=== PATIENT | female | born 1985 | race Caucasian/White ===

== ENCOUNTER 2024-10-19 08:43 | Outpatient (CLI) | payer OTHER, SELFPAY ==
[2024-10-19 09:52] LABS: Basophils Percent Auto 0.3 % (0.2-1.2); Eosinophils Absolute Auto 0.1 K/mm3 (0-0.3); Eosinophils Percent Auto 1.8 % (0-4.4); Hematocrit 32.5 % (37.0-47.0); Hemoglobin 10.7 g/dL (12.0-15.0); Immature Granulocyte Absolute 0.01 K/mm3 (0.00-0.031); Immature Granulocyte Percent A 0.3 % (0-0.5); Lymphocytes Absolute Auto 1.36 K/mm3 (0.9-3.2); Lymphocytes Percent Auto 41.7 % (18.3-44.2); Mean Corpuscular HGB Conc 32.9 g/dl (32-36); Mean Corpuscular Hemoglobin 27.9 pg (26-34); Mean Corpuscular Volume 84.9 fl (80-100); Mean Platelet Volume 9.8 fl (7.4-10.4); Monocytes Absolute Auto 0.3 K/mm3 (0.1-0.6); Monocytes Percent Auto 10.1 % (2.6-8.5); Neutrophils Absolute Auto 1.5 K/mm3 (1.3-6.7); Neutrophils Percent Auto 45.8 % (45.5-73.1); Platelet Count Result 157 k/mm3 (150-375); Red Blood Count 3.83 M/mm3 (4.2-5.4); Red Cell Distribution Width 15.5 % (11.5-14.5); White Blood Count 3.3 K/mm3 (4.5-10.0)
[2024-10-19 10:06] LABS: Alanine Aminotransferase 21 U/L (6-35); Alkaline Phosphatase 57 U/L (38-126); Anion Gap 6 mmol/L (4-12); Aspartate Amino Transferase 26 U/L (14-36); Bilirubin,Total 0.5 mg/dL (0.2-1.3); Blood Urea Nitrogen 28 mg/dL (7-17); Calcium 9.2 mg/dL (8.4-10.2); Carbon Dioxide 28 mmol/L (22-30); Chloride 103 mmol/L (98-107); Cholesterol 181 mg/dL (0-200); Estimated Glomerular Filt Rate > 60; Glucose 89 mg/dL (65-110); HDL Direct 64 mg/dL; Potassium 4.4 mmol/L (3.4-5.0); Sodium 137 mmol/L (137-145); Triglycerides 105 mg/dL (<150)
[2024-10-19 10:16] LABS: LDL Cholesterol Direct 64 mg/dL
[2024-10-19 11:04] LABS: Hepatitis B Surface Antigen Negative (Negative)
[2024-10-19 11:18] LABS: HIV 1/2 Ab P24 Ag 164
[2024-10-19 11:26] LABS: Hepatitis C Virus Antibody Reactive (Negative)
[2024-10-19 11:59] LABS: Hemoglobin A1C 5.2 % (<5.7)
[2024-10-19 12:17] LABS: HIVc Retest 1 155; HIVc Retest 2 155
[2024-10-19 15:24] LABS: HIV 1/2 Ab P24 Ag Result Reactive (Negative)
[2024-10-20 07:47] LABS: Rapid Plasma Reagin Non-Reactive (NonReactive)
[2024-10-21 13:19] LABS: NIL 0.04 IU/mL; Quantiferon TB Plus, 1T NEGATIVE (NEGATIVE); TB2-NIL 0.01 IU/mL
[2024-10-21 15:54] LABS: Hepatitis C RNA, Quant PCR <15 NOT DETECTED IU/mL (NOT DETECTED)
[2024-10-23 16:44] LABS: HIV 2 Antibody Negative
[2024-10-23 16:45] LABS: HIV 1 Ab Chg Test Yes; HIV 2 Ab Chg Test Yes
[2024-10-23 16:48] LABS: HIV 1 2 Ag Ab 4th Gen w Rflxs Repeatedly Reactive
[2024-10-23 16:51] LABS: HIV 1 Antibody Positive
== END 2024-10-19 08:44 | disposition home or self-care (01) ==
PROVIDERS: Visit Provider Nurse Practitioner Family
DX: Z00.00 Encounter for general adult medical examination without abnormal findings (principal); Z20.9 Contact with and (suspected) exposure to unspecified communicable disease; Z13.1 Encounter for screening for diabetes mellitus; Z13.0 Encounter for screening for diseases of the blood and blood-forming organs and certain disorders involving the immune mechanism; Z13.228 Encounter for screening for other metabolic disorders; Z13.29 Encounter for screening for other suspected endocrine disorder
CPT/HCPCS: 36415; 80053; 80061; 83036; 84443; 85025; 86480; 86592; 86701; 86702; 86703; 86803; 87340; 87389; 87522; G0432

== ENCOUNTER 2024-10-21 09:14 | Outpatient (CLI) | payer OTHER, SELFPAY ==
[2024-10-22 13:23] LABS: HIV 1 RNA PCR 5.73 (NOT DETECTED); HIV 1 RNA PCR 538000 copies/mL (NOT DETECTED)
== END 2024-10-21 09:15 | disposition home or self-care (01) ==
LOC: ANHLAB 09:16
PROVIDERS: Visit Provider Nurse Practitioner Family
DX: Z11.4 Encounter for screening for human immunodeficiency virus [HIV] (principal)
CPT/HCPCS: 36415; 87536; 99212; G0463

== ENCOUNTER 2024-10-22 16:00 | Emergency (ER) | payer OTHER, SELFPAY ==
--- NOTE | ~2024-10-22 | CT_ITS ---
CT chest abdomen pelvis w con Ordering provider: Deandre Mccormick MD History: 39 years Female with . LEFT FLANK PAIN, POSSIBLE LYMPHOMA . Comparison: None. Technique: CT chest with IV contrast. CT abdomen and pelvis CT abdomen and pelvis with IV and with or al contrast. Radiation reduction technique utilized.The dose-length product was 288.88 mGy-cm. 100 mL Omnipaque 350 was given IV.7 FINDINGS: CHEST: --VISUALIZED THORACIC INLET: Normal. Axillary enlarged lymph nodes are noted on the left side measures 2.3 cm. The largest in the right si de which measures 1.5 cm. --MEDIASTINUM: Aorta/coronary arteries: Normal. Heart/other: The heart is not enlarged. Lymph nodes: Right hilar lymph node is seen measuring 1.3 cm. Small lymph nodes are seen in the parat lance and prevascular areas. Soft tissue density seen anterior to the aorta which may be a lymph no ayah. Hematoma is less likely. --LUNGS: Dependent atelectatic changes. No pulmonary nodules or masses. No infiltrates or effusions. No pneumothorax. --MUSCULOSKELETAL: Soft tissues: The superficial soft tissues are normal. Bones: Normal spine. No suspicious bony lytic or sclerotic lesions. ABDOMEN/PELVIS: --MUSCULOSKELETAL: Bones: Normal spine. No suspicious bony lytic or sclerotic lesions. Superficial soft tissues: Left inguinal lymph nodes are noted with the largest measures 2.2 cm. Right inguinal lymph nodes with the largest measures 2 cm. Otherwise, The superficial soft tissues are nor mal. --UPPER ABDOMINAL ORGANS: Liver: Normal. Gallbladder: Contracted. Spleen: Normal. Stomach/duodenum: Normal. Pancreas: Normal. Adrenals: Normal. Kidneys: Normal. --PELVIC ORGANS: The bladder is normal. No bladder stones. Uterus: Normal. Right ovarian cysts are n oted. The largest measures 2.5 cm. --BOWEL AND MESENTERY: Colon: No evidence of diverticulitis.. Fecal material seen in the right side of the colon which may i ndicate constipation. The appendix is not demonstrated. Small Bowel: Normal. No obstruction. Peritoneum/mesentery: No free air or free fluid. No mesenteric lymphadenopathy. Bilateral iliac lymph adenopathy is noted with the largest on the side measures 2.1 cm. The largest on the right side magdi ures 1.4 cm. --RETROPERITONEUM: Normal aorta. Narrowing at the origin of the celiac artery. No retroperitoneal l ymphadenopathy. IMPRESSION: CHEST: 1. No acute cardiopulmonary pathology. 2. Mediastinal and axillary lymphadenopathy. ABDOMEN/PELVIS: 1. No evidence of appendicitis, diverticulitis or intestinal obstruction. 2. Bilateral inguinal and iliac lymphadenopathy. 3. Right ovarian cyst. 4. Constipation. Reviewed, dictated and finalized at location [facility]
[2024-10-22 16:04] VITALS: BP 131/92; PULSE 110; RESP 16; TEMP 36.6; O2SAT 98
--- NOTE | 2024-10-22 16:19 | ED.BACK ---
HPI - Back Pain/Injury General Chief Complaint: Back Pain/Injury Stated Complaint: L FLANK PAIN Time Seen by Provider: 10/22/24 16:17 Source: patient Mode of arrival: ambulatory Limitations: no limitations History of Present Illness HPI Narrative: 39 YEARS OLD WHITE FEMALE CAME TO THE ED COMPLAINING OF LEFT FLANK PAIN FOR OVER 2 MONTHS ASSOCIATED WITH URINARY FREQUENCY, SHARP STABBING PAIN, INTERMITTENT, WORSE WITH MOVEMENT, BETTER IF SHE HOLD IT BY HAND. ASSOCIATED WITH INTERMITTENT NAUSEA. PATIENT SIGNED AGAINST MEDICAL ADVICE AT CHEST NOT TODAY AFTER 6 DAYS OF HOSPITALIZATION. HISTORY OF HEROIN AND FENTANYL ABUSE, LAST HEROIN USE YEARS AGO, LAST FENTANYL ABUSE 1 MONTH AGO. PATIENT REPORT VAGINAL DISCHARGE RECENTLY LAST SEXUAL ACT 2023 PATIENT REPORTED SWELLING, TENDER LYMPH NODES ON THE NECK AND GROIN AREA BILATERALLY FOR MONTHS. PATIENT DOES NOT HAVE A FAMILY PHYSICIAN SHE DENIES ANY FEVER OR CHILLS OR CHEST PAIN OR SHORTNESS OF BREATH. HISTORY OF ANXIETY, DEPRESSION, INSOMNIA, DRUG ABUSE. SHE SMOKES CIGARETTES, DENIED ALCOHOL INTAKE. Related Data Allergies Allergy/AdvReac Type Severity Reaction Status Date / Time No Known Allergies Allergy Verified 10/22/24 16:08 Review of Systems Review of Systems: All systems reviewed & are unremarkable except as noted in HPI and below Exam Narrative: GENERAL APPEARANCE: WELL-DEVELOPED, WELL-NOURISHED SKIN: SCLEROTIC VEINS OF THE UPPER EXTREMITIES, SCATTERED SCARS., LARGE TENDER LYMPH NODES AT THE SIDE OF THE NECK, SUBMANDIBULAR, GROIN AREA BILATERALLY HEAD: NORMOCEPHALIC, NONTRAUMATIC EYES: CLEAR CONJUNCTIVA ENT: OROPHARYNX NORMAL, EARS NORMAL, NOSE NORMAL NECK: SUPPLE, NONTENDER CHEST AND RESPIRATORY: AIRWAY PATENT, NO RESPIRATORY DISTRESS, NO ACCESSORY MUSCLE USE HEART: REGULAR RATE/RHYTHM ABDOMEN: SOFT, SEVERE TENDERNESS LEFT FLANK AREA AND LEFT UPPER ABDOMEN, NO BRUISES OR RASH, NO ORGANOMEGALY, QUIET BOWEL SOUNDS VASCULAR: NORMAL PERIPHERAL PULSES, NORMAL CAPILLARY REFILL. MUSCULOSKELETAL: NORMAL RANGE OF MOTION, NONTENDER BACK NEUROLOGIC: ALERT AND ORIENTED ?3, ARTIST REPRESENTATIVE IS NORMAL TESTED, NO GROSS MOTOR DEFICIT Course Consultations Consultation #1: DR MILNER INFECTIOUS DISEASE AT [facility] HE RECOMMENDS PATIENT TO CALL THE INFECTIOUS DISEASE CLINIC AT [phone] FOR APPOINTMENT NEXT WEEK. Date: 10/22/24 Time: 20:32 Vital Signs Vital signs: Vital Signs Temperature 36.6 C 10/22/24 16:04 Pulse Rate 110 H 10/22/24 16:04 Respiratory Rate 16 10/22/24 16:04 Blood Pressure 131/92 H 10/22/24 16:04 Pulse Oximetry 98 10/22/24 16:04 Oxygen Delivery Room Air 10/22/24 16:04 Temperature 36.6 C 10/22/24 16:04 Pulse Rate 76 10/22/24 18:57 Respiratory Rate 16 10/22/24 18:57 Blood Pressure 119/82 10/22/24 18:57 Pulse Oximetry 100 10/22/24 18:57 Oxygen Delivery Room Air 10/22/24 16:04 MDM - Back Pain/Injury MDM Narrative Medical decision making narrative: PATIENT CAME TO THE ED WITH MULTIPLE SYMPTOMS INCLUDING LEFT FLANK PAIN, LYMPHADENOPATHY OF THE NECK AND GROIN AREA BILATERALLY VITAL SIGNS ARE STABLE PHYSICAL EXAMINATION CONSISTENT WITH LARGE TENDER LYMPH NODES AT THE SIDE OF NECK AND GROIN AREA BILATERALLY LOT OF SCAR TISSUE AND HARD OF THE VEINS OF THE UPPER EXTREMITIES SECONDARY TO IV DRUG USE AND ABUSE DIFFERENTIAL DIAGNOSIS INCLUDE URINARY TRACT INFECTION, DEHYDRATION, ELECTROLYTE IMBALANCE, LYMPHOMA, SYPHILIS, HIV BLOOD WORKUP TODAY INCLUDED CBC, CMP, LIPASE, HIV, SED RATE, CRP SHOWED SED RATE OF 76, CREATININE 1.1, LIPASE 533, URINALYSIS SHOWED EVIDENCE OF INFECTION CT ABDOMEN AND PELVIS WITH IV CONTRAST SHOWED MEDIASTINAL AND AXILLARY AND INGUINAL LYMPHADENOPATHY, CONSTIPATION. PATIENT WAS ADVISED TO FOLLOW-UP WITH INFECTIOUS DISEASE CLINIC AT [facility]. DISCHARGED ON CIPRO FOR URINARY TRACT INFECTION. A COPY OF THE BLOOD WORKUP TODAY AND CT SCAN OF THE ABDOMEN AND PELVIS AND CHEST WAS GIVEN TO THE PATIENT PRIOR TO DISCHARGE. THE PT WAS DISCHARGED TO HOME.THE PT,S CONDITION UPON DISCHARGE WAS FAIR,EDUCATION WAS PROVIDED TO THE PT IN REFERENCE TO THE FINAL IMPRESSION,DISCHARGE STUDY RESULTS,TREATMENT,PROGNOSIS AND NEED FOR FOLLOW UP . Differential Diagnosis Differential diagnosis: Likely other ( ABOVE) Medical Records Attestation: I reviewed the patient's medical records. Lab Data Attestation: I reviewed the patient's lab results. 10/22/24 16:43 10/22/24 16:43 Labs: Lab Results 10/22/24 Range/Units 16:43 WBC 3.9 L (4.5-10.0) K/mm3 RBC 3.73 L (4.2-5.4) M/mm3 Hgb 10.7 L (12.0-15.0) g/dL Hct 31.7 L (37.0-47.0) % MCV 85.0 (80-100) fl MCH 28.7 (26-34) pg MCHC 33.8 (32-36) g/dl RDW 15.7 H (11.5-14.5) % Plt Count 147 L (150-375) k/mm3 MPV 10.3 (7.4-10.4) fl Immature Gran % (Auto) 0.3 (0-0.5) % Neut % (Auto) 47.6 (45.5-73.1) % Lymph % (Auto) 42.0 (18.3-44.2) % [place] % (Auto) 8.8 H (2.6-8.5) % Eos % (Auto) 1.0 (0-4.4) % Baso % (Auto) 0.3 (0.2-1.2) % Lymph # (Auto) 1.63 (0.9-3.2) K/mm3 [place]ley # (Auto) 0.3 (0.1-0.6) K/mm3 Eos # (Auto) 0.0 (0-0.3) K/mm3 Baso # (Auto) 0.0 (0.0-0.1) K/mm3 Abs Immat Gran (auto) 0.01 (0.00-0.031) K/mm3 Absolute Neuts (auto) 1.9 (1.3-6.7) K/mm3 Absolute Nucleated RBC 0.000 (0.0-0.012) K/mm3 Nucleated RBC % 0.0 (0.0-0.2) % ESR 76 H (0-20) mm/hr Sodium 136 L (137-145) mmol/L Potassium 4.4 (3.4-5.0) mmol/L Chloride 101 (98-107) mmol/L Carbon Dioxide 29 (22-30) mmol/L Anion Gap 6 (4-12) mmol/L BUN 25 H (7-17) mg/dL Creatinine 1.10 H (0.7-1.0) mg/dL Estim Creat Clear Calc 48 ml/min Estimated GFR 55 L (59 - ) Glucose 90 (65-110) mg/dL Lactic Acid 0.9 (0.7-2.0) mmol/L Calcium 9.0 (8.4-10.2) mg/dL Total Bilirubin 0.5 (0.2-1.3) mg/dL AST 40 H (14-36) U/L ALT 43 H (6-35) U/L Alkaline Phosphatase 63 (38-126) U/L C-Reactive Protein < 0.5 (<1.0) mg/dL Total Protein 8.0 (6.3-8.2) g/dL Albumin 3.9 (3.5-5.1) g/dL Lipase 533 H (23-300) U/L Urine Color Yellow (Yellow) Urine Appearance Cloudy H (Clear) Urine pH 7.5 (5.0-9.0) Ur Specific [place] 1.012 (1.001-1.035) Urine Protein Negative (Negative) mg/dL Urine Glucose (UA) Negative (Negative) mg/dL Urine Ketones Negative (Negative) mg/dL Ur Blood (Man) 3+ H (Negative) Urine Nitrate Positive H (Negative) Urine Bilirubin Negative (Negative) Urine Urobilinogen 0.2 (<2.0) mg/dL Leukocyte Esterase Rfl 2+ H (Negative) ANNA/UL Urine RBC 51-100 H (0-2) /hpf Urine WBC 6-10 H (0-3) /hpf Ur Squamous Epith Cells Few (Few) /hpf Urine Bacteria 4+ H /hpf Urine Casts 0-2 Urine Test Negative RPR Non-reactive (NonReactive) HIV 1&2 Ab/P24 Ag 4thGn Reactive (Negative) Imaging Data Radiologist's impression: Impressions Chest/Abdomen/Pelvis CT 10/22/24 18:59 IMPRESSION: CHEST: 1. No acute cardiopulmonary pathology. 2. Mediastinal and axillary lymphadenopathy. ABDOMEN/PELVIS: 1. No evidence of appendicitis, diverticulitis or intestinal obstruction. 2. Bilateral inguinal and iliac lymphadenopathy. 3. Right ovarian cyst. 4. Constipation. Critical Care Time Critical Care Time Critical Care Time: Yes Total Critical Care Time: 30 Discharge Plan Discharge Clinical Impression: Urinary tract infection, HIV (human immunodeficiency virus infection), Constipation Patient Disposition: Home, Self-Care Condition: Guarded Prognosis Instructions: Antibiotic Form, Urinary Tract Infection in Women (DC), Lymphadenopathy (ED), HIV Infection (ED) Additional Instructions: RETURN IF SYMPTOMS ARE WORSENING , CALL INFECTIOUS DISEASE CLINIC AT [facility] TOMORROW FOR APPOINTMENT NEXT WEEK AT [phone], . TAKE TYLENOL, ibuprofen NEEDED FOR ACHES AND PAIN, CONTINUE HOME MEDICATIONS. Prescriptions: New ciprofloxacin HCl 500 mg tablet 500 mg PO Q12H Qty: 20 0RF Follow-up/Referrals: PHYSICIAN,MANAGER [employer] [Primary Care Provider] -
[2024-10-22 16:27] VITALS: BP 130/97; PULSE 89; RESP 18; O2SAT 100
[2024-10-22 16:56] LABS: Add Urine Microscopic? YES; Appearance Urine Cloudy (Clear); Bacteria Urine 4+ /hpf; Bilirubin Urine Negative (Negative); Blood Urine 3+ (Negative); Color Urine Yellow (Yellow); Glucose Urine UA Negative (Negative); Ketones Urine Negative (Negative); Leukocyte Esterase Ur 2+ LEU/UL (Negative); Nitrate Urine Positive (Negative); Non Pathogenic Casts 0-2; Protein Urine Negative (Negative); RBC Urine 51-100 /hpf (0-2); Specific Grav Ur 1.012 (1.001-1.035); Squamous Epithelial Cell Urine Few /hpf (Few); Urobilinogen Urine 0.2 mg/dL (<2.0); pH Urine 7.5 (5.0-9.0)
[2024-10-22] MEDS: SODIUM CHLORIDE 0.9% IV 1,000 ML 999 ML IV CONT (17:08)
[2024-10-22] MEDS: ONDANSETRON INJ 4 MG/2 ML VIAL IV PUSH (17:08)
--- NOTE | 2024-10-22 17:22 | PC.NURSE ---
Lab called to add on additional ordered labs and urine test. Unable to complete urine test d/t urine not being at bedside.
[2024-10-22 17:25] LABS: Basophils Percent Auto 0.3 % (0.2-1.2); Hematocrit 31.7 % (37.0-47.0); Hemoglobin 10.7 g/dL (12.0-15.0); Immature Granulocyte Absolute 0.01 K/mm3 (0.00-0.031); Immature Granulocyte Percent A 0.3 % (0-0.5); Lymphocytes Absolute Auto 1.63 K/mm3 (0.9-3.2); Mean Corpuscular HGB Conc 33.8 g/dl (32-36); Mean Corpuscular Hemoglobin 28.7 pg (26-34); Mean Platelet Volume 10.3 fl (7.4-10.4); Monocytes Absolute Auto 0.3 K/mm3 (0.1-0.6); Monocytes Percent Auto 8.8 % (2.6-8.5); Neutrophils Absolute Auto 1.9 K/mm3 (1.3-6.7); Neutrophils Percent Auto 47.6 % (45.5-73.1); Platelet Count Result 147 k/mm3 (150-375); Red Blood Count 3.73 M/mm3 (4.2-5.4); Red Cell Distribution Width 15.7 % (11.5-14.5); White Blood Count 3.9 K/mm3 (4.5-10.0)
[2024-10-22 17:26] LABS: Alanine Aminotransferase 43 U/L (6-35); Albumin Level 3.9 g/dL (3.5-5.1); Alkaline Phosphatase 63 U/L (38-126); Anion Gap 6 mmol/L (4-12); Aspartate Amino Transferase 40 U/L (14-36); Bilirubin,Total 0.5 mg/dL (0.2-1.3); Blood Urea Nitrogen 25 mg/dL (7-17); Carbon Dioxide 29 mmol/L (22-30); Chloride 101 mmol/L (98-107); Estimated CRCL calculation 48 ml/min; Estimated Glomerular Filt Rate 55; Glucose 90 mg/dL (65-110); Lipase 533 U/L (23-300); Potassium 4.4 mmol/L (3.4-5.0); Sodium 136 mmol/L (137-145)
[2024-10-22 17:27] LABS: Lactic Acid Reflex 0.9 mmol/L (0.7-2.0)
[2024-10-22 17:35] LABS: Pregnancy On Board Control Positive; Urine Pregnancy Test Negative
[2024-10-22 17:40] LABS: CRP < 0.5 mg/dL (<1.0)
[2024-10-22 18:01] LABS: Erythrocyte Sedimentation Rate 76 mm/hr (0-20)
[2024-10-22 18:03] LABS: Rapid Plasma Reagin Non-Reactive (NonReactive)
[2024-10-22 18:57] VITALS: BP 119/82; PULSE 76; RESP 16; O2SAT 100
[2024-10-22 19:10] LABS: HIV 1/2 Ab P24 Ag 174
[2024-10-22 19:11] LABS: HIV 1/2 Ab P24 Ag Result Reactive (Negative)
[2024-10-22 19:14] LABS: HIVc Retest 1 170; HIVc Retest 2 170
[2024-10-22 20:35] VITALS: BP 118/80; PULSE 78; RESP 15; O2SAT 100
== END 2024-10-22 20:38 | disposition home or self-care (01) ==
PROVIDERS: Emergency Provider Emergency Medicine
DX: N39.0 Urinary tract infection, site not specified (principal); B20 Human immunodeficiency virus [HIV] disease; K59.00 Constipation, unspecified; F17.210 Nicotine dependence, cigarettes, uncomplicated; N83.201 Unspecified ovarian cyst, right side
CPT/HCPCS: 36415; 71260; 74177; 80053; 81001; 81025; 83605; 83690; 85025; 85652; 86140; 86592; 86703; 87077; 87086; 87186; 96361; 96365; 96375; 99284; G0432; J0696; J2405; J7030; Q9967